=== PATIENT | female | born 1950 | race African-American/Black ===

== ENCOUNTER 2018-03-10 10:04 | Emergency (ER) | payer MEDICARE, OTHER ==
[~2018-03-10] VITALS: Ht 165.1 cm; Wt 79.8 kg
[~2018-03-10 10:04] MED LIST: ALENDRONATE SOD70 MG PO; ASCORBIC ACID500 MG PO; BETAMETHASONE D15 G3 TP; CELEXA20 MG PO; CLEOCIN150 MG PO; CLINDAMYCIN HC300 MG PO; COD LIVER OIL1 EAC2 PO; DSS100 MG PO; FERROUS GLUCON PO; FOLIC ACID1 MG PO; HYDROCORTISONE28 G1 TP; IBUPROFEN600 MG PO; IMITREX50 MG PO; MAXZIDE 37.5 M1 EACH PO; NORCO 5-325 TA1 EACH ORAL; OSTERA TABLET1 EACH PO; POTASSIUM10 MEQ/101 PO; PRILOSEC40 MG PO; SOMA350 MG PO; SYNTHROID112 MCG PO; TUMS500 MG PO; VICODIN 5-5001 EACH PO; VICODIN ES 7.51 EACH PO; VISTARIL10 MG PO; VISTARIL50 MG PO
[2018-03-10 10:10] VITALS: BP 154/78
[2018-03-10 11:02] LABS: BASOPHILS % (AUTO) 1.2 % (0.0-2.0); EOSINOPHILS % (AUTO) 5.7 % (0.0-3.0); HEMATOCRIT 39.2 % (37.0-47.0); HEMOGLOBIN 12.3 G/DL (12.0-16.0); LYMPHOCYTES % (AUTO) 33.9 % (20.0-45.0); MEAN CORPUSCULAR VOLUME 84 FL (80-99); MONOCYTES % (AUTO) 7.1 % (1.0-10.0); NEUTROPHILS % (AUTO) 52.1 % (45.0-75.0); PLATELET COUNT 160 K/UL (150-450); RED BLOOD COUNT 4.66 M/UL (4.20-5.40); RED CELL DISTRIBUTION WIDTH 13.1 % (11.6-14.8); WHITE BLOOD COUNT 4.1 K/UL (4.8-10.8)
[2018-03-10 11:08] LABS: ANION GAP 7 mmol/L (5-15); BLOOD UREA NITROGEN 13 mg/dL (7-18); CALCIUM 8.5 MG/DL (8.5-10.1); CARBON DIOXIDE 27 MMOL/L (21-32); CHLORIDE 108 MMOL/L (98-107); CREATININE 0.6 MG/DL (0.55-1.30); POTASSIUM 3.7 MMOL/L (3.5-5.1); SODIUM 142 MMOL/L (136-145)
[2018-03-10 11:11] LABS: ALANINE AMINOTRANSFERASE 28 U/L (12-78); ALBUMIN 3.2 G/DL (3.4-5.0); ALBUMIN/GLOBULIN RATIO 0.7 (1.0-2.7); ALKALINE PHOSPHATASE 109 U/L (46-116); ASPARTATE AMINO TRANSFERASE 26 U/L (15-37); BILIRUBIN,TOTAL 0.2 MG/DL (0.2-1.0)
[2018-03-10] MEDS ORDERED: Norco 5mg/325mg tab ORAL ONE (12:15)
--- NOTE | 2018-03-10 12:54 | Emergency Room Report ---
History of Present Illness General Chief Complaint: Multiple Trauma/Fall Source: Patient, Medical Record Present Illness HPI 68-year-old female patient presents to the ER status post fall earlier today. Patient reports that she was getting out of car when there was uneven sidewalk that she tripped and fell over. Denies dizziness or syncope prior to the fall. Reports that she tripped landed on her right knee and left wrist, states that she also fell onto the left side of her jaw. Denies loss of consciousness. Denies vomiting or vision changes. Reports that she is right-hand dominant, states that she fell onto the outer portion of both her hands and wrist. Denies loss of range of motion. Reports history of right knee replacement surgery a few years ago, states that she normally takes Norton, Soma, Voltaren gel for relief of pain symptoms, states she has not taken any medication today. Denies taking any blood thinner medications. Denies fever, chest pain, shortness of breath. Allergies: Coded Allergies: ASPIRIN (Verified Allergy, Severe, Itching, 02/10/12) PENICILLINS (Verified Allergy, Severe, Shortness of Breath, 02/10/12) SULFA(SULFONAMIDE ANTIBIOTICS) (Verified Allergy, Severe, Shortness of Breath, 02/10/12) Patient History Past Medical History: see triage record Last Menstrual Period: menopause Reviewed Nursing Documentation: PMH: Agreed; PSxH: Agreed Nursing Documentation-PMH Past Medical History: No History, Except For Hx Cardiac Problems: No - GRAVES, RA Hx Asthma: Yes Hx Neurological Problems: Yes - ARTHITIS Review of Systems All Other Systems: negative except mentioned in HPI Physical Exam Vital Signs Date Time Temp Pulse Resp B/P (MAP) Pulse Ox O2 Delivery O2 Flow Rate FiO2 03/10/18 10:10 97.9 67 18 154/78 98 Room Air Sp02 EP Interpretation: reviewed, normal General Appearance: well appearing, no apparent distress, alert, GCS 15, non- toxic Head: normocephalic, atraumatic, other - No jaw clicking, mild swelling noted over left lower mandible, pt. presents to the ED c/o gout attack.Ddx considered but are not limited to gout, fracture, sprain, strain, contusion, cellulitis, DVT.Vital signs: are WNL, pt. is afebrileORDERS: An X-ray of results show no acute disease, per the official radiology report.ED INTERVENTIONS: -Colchicine- IndomethacinCane provided.DISCHARGE:-Rx provided for Ibuprofen for pain symptoms.-Rx provided for Colchicine.At this time pt. is stable for d/c to home. Patient resting comfortably, nontoxic appearing, talking without difficulty.Will provide printed patient care instructions, and any necessary prescriptions.Patient instructed to follow with primary care provider in 3 - 5 days and to discuss further gout and foot pain treatment.Care plan and follow up instructions have been discussed with the patient prior to discharge.Take medications as directed. Patient questions asked and answered.ER precautions given, patient instructed to return to ER immediately for any new or worsening of symptoms, mild ecchymosis noted, no erythema, negative delarosa sign, negative raccoon eyes Eyes: bilateral eye normal inspection, bilateral eye PERRL ENT: hearing grossly normal, normal pharynx, no angioedema, normal voice, uvula midline, moist mucus membranes, other - no TTP of teeth, missing posterior molars bilaterally Neck: full range of motion Respiratory: lungs clear, normal breath sounds, no rhonchi, no respiratory distress, no accessory muscle use, no wheezing, speaking full sentences Cardiovascular #1: regular rate, rhythm, no edema Cardiovascular #2: 2+ radial (R), 2+ radial (L) Gastrointestinal: non tender, soft, no mass, non-distended, no guarding, no rebound Genitourinary: no CVA tenderness Musculoskeletal: back normal, digits/nails normal, gait/station normal, normal range of motion, non-tender, swelling - Swelling noted over anterior knee, other - NVI, no laxity with varus or valgus stress, negative anterior posterior drawer test, no snuffbox tenderness, AIN/PIN/radial nerves intact Refill less than 2 seconds, no deformity, tender Neurologic: alert, oriented x3, responsive, motor strength/tone normal, sensory intact Skin: abrasions - Small less than 1 cm abrasions noted on ulnar aspect of bilateral hands, no surrounding erythema edema, no active bleeding Medical Decision Making PA Attestation Dr. Rodriguez is my supervising Physician whom patient management has been discussed with. Diagnostic Impression: Primary Impression: Multiple injuries due to trauma Additional Impressions: Contusion of jaw Atherosclerosis ER Course Pt. presents to the ED s/p ground level mechanical fall with multiple complaints of pain. Ddx considered but are not limited to fracture, sprain, strain, contusion, dislocation. No erythema, no warmth to touch, no fever, nontoxic appearing, low suspicion for septic joint. Soft compartments, no pulselessness, no pallor, no paresthesias, low suspicion for compartment syndrome at this time. Vital signs: are WNL, pt. is afebrile Ordered X-ray and pain medication. ER COURSE Provided with Norton pain medication. small abrasions noted on bilateral hands, cleaned and dressed, bacitracin applied, does not require oral abx or suturing, no deep lacerations noted. Labs unremarkable, no signs of anemia, normal H&H, no elevation WBCs, normal coags, UA negative xray of the right hand negative for acute disease per the preliminary reading xray left hand negative for acute disease per the preliminary reading xray right knee negative for acute disease per the preliminary reading, total joint replacement noted. CT head shows no mass effect, edema or acute bleed. Minimal white matter low- attenuation. At this age this is probably due to chronic small vessel disease, followup with PCP to discuss. CT facial bones negative for acute disease. CT cervical spine negative for acute fracture, atherosclerosis and spondylolysis noted. Discus with PCP. Discuss results with the patient. Provided patient with copy of results. Instructed patient to followup with PCP and discuss results of report with patient, discuss need for further treatment and referral. Damián wrap was applied to the right knee and was checked afterwards by me showing good alignment and support with distal neurovascular functioning intact. Patient declined crutches. Patient instructed on RICE method: rest, ice, compression, elevation. Patient instructed on rest, ice and heat. Patient instructed to be WBAT Contact information for orthopedic urgent care provided, follow-up with urgent care if unable to followup with primary care provider and get referral to release of information specialist. Followup with primary care provider. Discuss referral to ortho/pain management/ PT as needed. Discuss further imaging with MRI/CT as needed. She reports that she has pain medicines at home, does not need refill of pain medicines currently, will get refill from her primary care provider and pain management doctor. DISCHARGE: -Rx provided for bacitracin Rx provided for ibuprofen per patient request. At this time pt. is stable for d/c to home. Patient is resting comfortably, in no acute distress, nontoxic appearing, talking without difficulty. Will provide printed patient care instructions, and any necessary prescriptions. Patient instructed to follow with primary care provider in 3 - 5 days and to request further follow-up as needed. Care plan and follow up instructions have been discussed with the patient prior to discharge. Take medications as directed. Patient questions asked and answered. Patient reports understanding and agreement to treatment plan. ER precautions given, patient instructed to return to ER immediately for any new or worsening of symptoms. - Please note that this Emergency Department Report was dictated using [employer] technology software, occasionally this can lead to erroneous entry secondary to interpretation by the dictation equipment. Labs Test 03/10/18 10:40 03/10/18 13:10 White Blood Count 4.1 K/UL (4.8-10.8) Red Blood Count 4.66 M/UL (4.20-5.40) Hemoglobin 12.3 G/DL (12.0-16.0) Hematocrit 39.2 % (37.0-47.0) Mean Corpuscular Volume 84 FL (80-99) Mean Corpuscular Hemoglobin 26.4 PG (27.0-31.0) Mean Corpuscular Hemoglobin Concent 31.4 G/DL (32.0-36.0) Red Cell Distribution Width 13.1 % (11.6-14.8) Platelet Count 160 K/UL (150-450) Mean Platelet Volume 8.6 FL (6.5-10.1) Neutrophils (%) (Auto) 52.1 % (45.0-75.0) Lymphocytes (%) (Auto) 33.9 % (20.0-45.0) Monocytes (%) (Auto) 7.1 % (1.0-10.0) Eosinophils (%) (Auto) 5.7 % (0.0-3.0) Basophils (%) (Auto) 1.2 % (0.0-2.0) Prothrombin Time 10.2 SEC (9.30-11.50) Prothromb Time International Ratio 1.0 (0.9-1.1) Activated Partial Thromboplast Time 29 SEC (23-33) Sodium Level 142 MMOL/L (136-145) Potassium Level 3.7 MMOL/L (3.5-5.1) Chloride Level 108 MMOL/L (98-107) Carbon Dioxide Level 27 MMOL/L (21-32) Anion Gap 7 mmol/L (5-15) Blood Urea Nitrogen 13 mg/dL (7-18) Creatinine 0.6 MG/DL (0.55-1.30) Estimat Glomerular Filtration Rate > 60 mL/min (>60) Glucose Level 80 MG/DL (74-106) Calcium Level 8.5 MG/DL (8.5-10.1) Total Bilirubin 0.2 MG/DL (0.2-1.0) Aspartate Amino Transf (AST/SGOT) 26 U/L (15-37) Alanine Aminotransferase (ALT/SGPT) 28 U/L (12-78) Alkaline Phosphatase 109 U/L (46-116) Total Protein 7.6 G/DL (6.4-8.2) Albumin 3.2 G/DL (3.4-5.0) Globulin 4.4 g/dL Albumin/Globulin Ratio 0.7 (1.0-2.7) Urine Color Pale yellow Urine Appearance Clear Urine pH 8 (4.5-8.0) Urine Specific [place] 1.010 (1.005-1.035) Urine Protein Negative (NEGATIVE) Urine Glucose (UA) Negative (NEGATIVE) Urine Ketones Negative (NEGATIVE) Urine Blood Negative (NEGATIVE) Urine Nitrite Negative (NEGATIVE) Urine Bilirubin Negative (NEGATIVE) Urine Urobilinogen 1 MG/DL (0.0-1.0) Urine Leukocyte Esterase Negative (NEGATIVE) Other X-Ray Diagnostic Results Other X-Ray Diagnostic Results #1: X-Ray ordered: Left hand # of Views/Limited Vs Complete: 3 View Indication: Pain EP Interpretation: Yes PA Xray: Interpretation reviewed, by supervising MD, and agrees with findings. Interpretation: no dislocation, no soft tissue swelling, no fractures, nonspecific bowel gas Impression: No acute disease PA Scribe Text Stephane Salvador PA-C Other X-Ray Diagnostic Results #2: X-Ray ordered: Right hand # of Views/Limited Vs Complete: 3 View Indication: Pain EP Interpretation: Yes PA Xray: Interpretation reviewed, by supervising MD, and agrees with findings. Interpretation: no dislocation, no soft tissue swelling, no fractures Impression: No acute disease PA Scribe Text Stephane Salvador PA-C Other X-Ray Diagnostic Results #3: X-Ray ordered: Right knee # of Views/Limited Vs Complete: 3 View Indication: Pain EP Interpretation: Yes PA Xray: Interpretation reviewed, by supervising MD, and agrees with findings. Interpretation: no dislocation, no soft tissue swelling, no fractures Impression: No acute disease MAURICIO Salvador PA-C CT/MRI/US Diagnostic Results CT/MRI/US Diagnostic Results #1: Imaging Test Ordered: CT head Impression Impression: No mass effect, edema or acute bleed. Minimal white matter low-attenuation. At this age this is probably due to chronic small vessel disease CT/MRI/US Diagnostic Results #2: Imaging Test Ordered: CT facial bones Impression IMPRESSION: Negative examination. No acute injury appreciated CT/MRI/US Diagnostic Results #3: Imaging Test Ordered: CT cervical spine Impression Impression: No acute injury Mild spondylosis Atherosclerotic disease Last Vital Signs Date Time Temp Pulse Resp B/P (MAP) Pulse Ox O2 Delivery O2 Flow Rate FiO2 03/10/18 10:10 67 18 Room Air 03/10/18 10:10 97.9 154/78 98 Disposition: HOME, SELF-CARE Condition: Stable Scripts Ibuprofen* (MOTRIN*) 600 Mg Tablet 600 MG ORAL Q8H PRN for For Pain, #30 TAB 0 Refills Prov: Boaz Salvador 03/10/18 Bacitracin/Polymyxin B Sulfate (BACITRACIN-POLYMYXIN OINTMENT) 28.35 Gm Oint...g. 1 APPLIC TP BID, #28 GM Prov: Boaz Salvador 03/10/18 Referrals: NOT CHOSEN IPA/,REFERRING (PCP) Patient Instructions: Abrasion, [id number], Atherosclerosis, Fall Prevention in the Home, [id number]-[id number], Hand Contusion, Ovbq-mi-[id number], Jaw Contusion, Easy-to- Read, Knee Pain, [id number] Additional Instructions: Patient instructed to follow up with primary care provider. Discuss CT results and further referral at that time. Discuss further referral to orthopedics/physical therapy/pain management as needed. If unable to followup with PCP, followup with orthopedic urgent care in 5-7 days , call to schedule appointment. Patient instructed on RICE method: rest, ice, compression, elevation. Patient instructed to WBAT. Keep abrasions clean and dry, apply Neosporin to affected areas. Take medications as directed. Patient questions asked and answered. ER precautions given, patient instructed to return to ER immediately for any new or worsening of symptoms. [facility] [id number] [facility] [address] [facility], [id number] [email or web address] Boaz Salvador Mar 10, 2018 12:54
[2018-03-10 13:19] LABS: APPEARANCE,URINE CLEAR; BILIRUBIN, URINE NEGATIVE (NEGATIVE); COLOR,URINE PALE YELLOW; GLUCOSE, URINE (UA) NEGATIVE (NEGATIVE); KETONES,URINE NEGATIVE (NEGATIVE); LEUKOCYTE ESTERASE ,URINE NEGATIVE (NEGATIVE); NITRITE,URINE NEGATIVE (NEGATIVE); PH,URINE 8 (4.5-8.0); PROTEIN,URINE NEGATIVE (NEGATIVE); UROBILINOGEN,URINE 1 MG/DL (0.0-1.0)
[2018-03-10] MEDS ORDERED: Bacitracin Oint UD TOPIC ONE (13:30)
--- NOTE | 2018-03-10 13:47 | Diagnostic Imaging Report ---
Indication: Headache and trauma to the head Technique: Contiguous 5 mm thick transaxial imaging of the head obtained in a Siemens Sensation [address] scanner. Soft tissue and bone windows generated. Automatic Exposure Control was utilized. Total Dose length Product (DLP): 1333.[address] Dose Index Volume (CTDIvol): 70.38 mGy Comparison: none Findings: The size and configuration of the cortical sulci, basal cisterns, and ventricles are within normal limits for age. There is minimal patchy low-attenuation of deep and periventricular white matter. There is no mass effect, midline shift, or edema identified. There is no evidence of acute hemorrhage or abnormal intra-axial or extra-axial fluid collections. The bones and soft tissues are unremarkable. Impression: No mass effect, edema or acute bleed. Minimal white matter low-attenuation. At this age this is probably due to chronic small vessel disease. The CT scanner at [facility] is accredited by the [employer] and the scans are performed using dose optimization techniques as appropriate to a performed exam including Automatic Exposure control.
--- NOTE | 2018-03-10 13:47 | Diagnostic Imaging Report ---
Indication: Neck pain. Technique: Continuous helical imaging of the cervical spine was obtained transaxially from the skull base to the upper thoracic spine. 2-D coronal and sagittal reformatted images were obtained. Automatic Exposure Control was utilized. Total Dose length Product (DLP): 262.[address] Dose Index Volume (CTDIvol): 12.35 mGy Comparison: None Findings: There is no acute fracture or malalignment identified. There is no soft tissue swelling identified. The bones are osteopenic. Mild uncovertebral arthritis is demonstrated at multiple levels. Some of the intervertebral discs show mild narrowing. There is mild foraminal stenosis at C5-6 and C6-7. Mild calcification at the proximal left ICA noted. Impression: No acute injury Mild spondylosis Atherosclerotic disease The CT scanner at [facility] is accredited by the [employer] and the scans are performed using dose optimization techniques as appropriate to a performed exam including Automatic Exposure control.
--- NOTE | 2018-03-10 13:47 | Diagnostic Imaging Report ---
Indication: Right wrist pain Findings: 3 views of the right wrist were obtained. No acute fractures, malalignment, erosions or periostitis are identified. Bones are osteopenic. Soft tissues are unremarkable. Impression: No acute findings.
--- NOTE | 2018-03-10 13:47 | Diagnostic Imaging Report ---
Indication: Left wrist pain Findings: 3 views of the left wrist were obtained. No definite acute fractures, malalignment, erosions or periostitis are identified. Bones are osteopenic. Soft tissues are unremarkable. Impression: No acute findings.
--- NOTE | 2018-03-10 13:47 | Diagnostic Imaging Report ---
Indication: Pain Knee pain/trauma 3 views of the right knee were obtained. Findings: No acute fracture, malalignment, or joint effusion are identified. Total knee arthroplasty demonstrated. The prosthetic is unremarkable. The bones are osteopenic. Impression: Negative for acute findings.
--- NOTE | 2018-03-10 13:47 | Diagnostic Imaging Report ---
Indication: Head and facial trauma and pain. Left facial contusion. Technique: Continuous helical transaxial imaging of the maxillofacial structures obtained without intravenous contrast administration. Coronal 2-D reformats were also obtained. Study obtained in a Siemens sensation [address] Automatic Exposure Control was utilized. Total Dose length Product (DLP): [address] Dose Index Volume (CTDIvol): 0.15, 28.19 mGy Comparison: None Findings: There is no evidence of an acute fracture. Paranasal sinuses and mastoids are clear. Soft tissues are unremarkable. IMPRESSION: Negative examination. No acute injury appreciated The CT scanner at [facility] is accredited by the [employer] and the scans are performed using dose optimization techniques as appropriate to a performed exam including Automatic Exposure control.
[2018-03-10] MEDS ORDERED: BACITRACIN-P28.35 GM TP (14:10)
[2018-03-10] MEDS ORDERED: IBUPROFEN600 MG ORAL (14:18)
[2018-03-10 14:21] VITALS: BP 148/69
== END 2018-03-10 14:23 | disposition home or self-care (01) ==
LOC: EMR 11:34
DX: S00.83XA Contusion of other part of head, initial encounter (principal); S60.512A Abrasion of left hand, initial encounter; S60.511A Abrasion of right hand, initial encounter; S89.81XA Other specified injuries of right lower leg, initial encounter; W01.0XXA Fall on same level from slipping, tripping and stumbling without subsequent striking against object, initial encounter; Y92.480 Sidewalk as the place of occurrence of the external cause; M47.812 Spondylosis without myelopathy or radiculopathy, cervical region; I70.90 Unspecified atherosclerosis; Z88.0 Allergy status to penicillin; Z88.2 Allergy status to sulfonamides; Z88.6 Allergy status to analgesic agent; M06.9 Rheumatoid arthritis, unspecified; J45.909 Unspecified asthma, uncomplicated
CPT/HCPCS: 36415; 70450; 70486; 72125; 80053; 81003; 85025; 85610; 85730; 99284